=== PATIENT | male | born 1975 | race Caucasian/White ===

== ENCOUNTER 2016-12-20 13:39 | Emergency (ER) | payer BC, OTHER ==
[2016-12-20 14:24] VITALS: BP 126/79
[2016-12-20] MEDS ORDERED: DOXYcycline CAP(*) 100 MG PO ONE (14:36)
--- NOTE | 2016-12-20 14:44 | UC ---
General HPI - HPI Summary HPI Summary: RED RASH LEFT MEDIAL THIGH (0.3CM X 0.3CM). REMOVED TICK FROM THIGH FIVE HOURS PRIOR TO ARRIVAL. NO FEVER. NO JOINT PAIN. - History of Current Complaint Chief Complaint: UCGeneralIllness Stated Complaint: TICK BITE Time Seen by Provider: 12/20/16 14:26 Hx Obtained From: Patient Onset/Duration: Gradual Onset, Lasting Hours Onset Severity: Mild Current Severity: None Associated Signs & Symptoms: Negative: Abdominal Pain, Cough, Edema, Fever, Headache, Syncope, SOB, Trauma - Allergy/Home Medications Allergies/Adverse Reactions: Allergies Allergy/AdvReac Type Severity Reaction Status Date / Time No Known Allergies Allergy Verified 12/20/16 14:18 Home Medications: Home Medications NK [No Home Medications Reported] 12/20/16 [History Confirmed 12/20/16] PMH/Surg Hx/FS Hx/Imm Hx Previously Healthy: Yes - Surgical History Surgical History: Yes Surgery Procedure, Year, and Place: L knee - Family History Known Family History: Negative: Blood Disorder - Social History Occupation: Employed Full-time Lives: With Family Alcohol Use: Rare Substance Use Type: None Smoking Status (MU): Former Smoker Amount Used/How Often: 6 yrs Have You Smoked in the Last Year: No When Did the Patient Quit Smoking/Using Tobacco: 15 yrs ago Cessation Counseling: Patient Advised to Stop Review of Systems Constitutional: Negative Skin: Rash - 0.3CM X 0.3CM LEFT MEDIAL THIGH Eyes: Negative ENT: Negative Respiratory: Negative Cardiovascular: Negative Gastrointestinal: Negative Genitourinary: Negative Motor: Negative Neurovascular: Negative Musculoskeletal: Negative Neurological: Negative Psychological: Negative Is Patient Immunocompromised?: No All Other Systems Reviewed And Are Negative: Yes Physical Exam Triage Information Reviewed: Yes Appearance: Well-Appearing, No Pain Distress, Well-Nourished Vital Signs: Initial Vital Signs Temp 99.2 F 12/20/16 14:19 Pulse 80 12/20/16 14:19 Resp 16 12/20/16 14:19 BP 126/79 12/20/16 14:19 Pulse Ox 99 12/20/16 14:19 Vital Signs Reviewed: Yes Eye Exam: Normal ENT Exam: Normal ENT: Positive: Normal ENT inspection, TMs normal Dental Exam: Normal Neck exam: Normal Neck: Positive: Supple, Nontender, No Lymphadenopathy Respiratory Exam: Normal Respiratory: Positive: Chest non-tender, Lungs clear, Normal breath sounds, No respiratory distress, No accessory muscle use Cardiovascular Exam: Normal Cardiovascular: Positive: RRR, No Murmur, Pulses Normal Abdominal Exam: Normal Abdomen Description: Positive: Nontender, No Organomegaly Musculoskeletal Exam: Normal Musculoskeletal: Positive: Strength Intact, ROM Intact Neurological Exam: Normal Psychological Exam: Normal Skin Exam: Normal Course/Dx - Differential Dx - Multi-Symptom Differential Diagnoses: Metabolic Abnormality, Sepsis Provider Diagnoses: TICK BITE PROPHYLAXIS Discharge - Discharge Plan Condition: Stable Disposition: HOME Patient Education Materials: Lyme Disease (ED), Tick Bite (ED) Referrals: [facility] [Outside] No Primary Care Phys,NOPCP [Primary Care Provider] -
== END 2016-12-20 14:42 | disposition home or self-care (01) ==
LOC: UCEAST 13:39
DX: S71.152A Open bite, left thigh, initial encounter (principal); Z87.891 Personal history of nicotine dependence; W57.XXXA Bitten or stung by nonvenomous insect and other nonvenomous arthropods, initial encounter; Y92.9 Unspecified place or not applicable
CPT/HCPCS: 99212; A9270-GY; G0463